=== PATIENT | male | born 1940 | race Two or more races ===

== ENCOUNTER → 2017-11-18 11:36 | Outpatient (CLI) | payer OTHER | END | disposition home or self-care (01) | LOC: LAB 11:36 | DX: R22.1 Localized swelling, mass and lump, neck (principal); Z51.81 Encounter for therapeutic drug level monitoring ==

== ENCOUNTER 2017-11-20 08:39 | Outpatient (CLI) | payer OTHER | END 2017-11-20 08:51 | disposition home or self-care (01) | LOC: TOM 08:39 | DX: R22.1 Localized swelling, mass and lump, neck (principal) | CPT/HCPCS: 70492; Q9965 ==